=== PATIENT | female | born 1965 | race Caucasian/White ===

== ENCOUNTER 2018-04-06 06:50 | Emergency (ER) | payer BC ==
[~2018-04-06] VITALS: Ht 160 cm; Wt 74.8 kg
[2018-04-06] MEDS ORDERED: NOHOMEMEDICATIONS (07:03)
[2018-04-06] MEDS ORDERED: FLEXERIL PO (07:29)
[2018-04-06] MEDS ORDERED: PREDNISONE 20 M20 M1 PO (07:29)
[2018-04-06] MEDS ORDERED: NORCO 5-325 TA1 EACH PO (07:29)
[2018-04-06 07:45] VITALS: BP 111/79
== END 2018-04-06 07:45 | disposition home or self-care (01) ==
LOC: M.ERS 06:50
DX: M54.31 Sciatica, right side (principal)

== ENCOUNTER 2018-04-28 02:52 | Emergency (ER) | payer BC ==
[~2018-04-28] VITALS: Ht 160 cm; Wt 74.8 kg
[~2018-04-28 02:52] MED LIST: FLEXERIL PO; NOHOMEMEDICATIONS; NORCO 5-325 TA1 EACH PO; PREDNISONE 20 M20 M1 PO
[2018-04-28] MEDS ORDERED: ALEVE220 MG (03:00)
[2018-04-28] MEDS ORDERED: MEDROLDOSEPACK PO (03:16)
[2018-04-28] MEDS ORDERED: AMBIEN5 MG PO (03:16)
[2018-04-28] MEDS ORDERED: FLEXERIL PO (03:16)
[2018-04-28] MEDS ORDERED: HYDROCODON-ACE1 EAC7 PO (03:16)
[2018-04-28 03:30] VITALS: BP 139/68
== END 2018-04-28 03:32 | disposition home or self-care (01) ==
LOC: M.ERS 02:52
DX: M54.31 Sciatica, right side (principal); Z98.890 Other specified postprocedural states

== ENCOUNTER → 2018-05-17 | Outpatient (CLI) | payer BC ==
[~2018-05-17] MED LIST changes: +ALEVE220 MG; +AMBIEN5 MG PO; +HYDROCODON-ACE1 EAC7 PO; +MEDROLDOSEPACK PO
== END ==
LOC: M.RAD 14:50
DX: M54.5 Low back pain (principal); M54.31 Sciatica, right side; M47.897 Other spondylosis, lumbosacral region; Z72.89 Other problems related to lifestyle

== ENCOUNTER → 2018-06-01 | Outpatient (CLI) | payer BC | LOC: M.MRI 16:44 | DX: M54.31 Sciatica, right side (principal); M47.896 Other spondylosis, lumbar region ==